=== PATIENT | male | born 1935 | race Caucasian/White ===

== ENCOUNTER 2018-12-05 17:10 | Emergency (ER) | payer MEDICARE, OTHER ==
--- NOTE | 2018-12-05 17:54 | EDM.PDOC ---
ED HPI GENERAL MEDICAL PROBLEM - General Chief Complaint: Abdominal Pain Stated Complaint: "cant go" Time Seen by Provider: 12/05/18 17:28 Source of Information: Reports: Patient, Family History Limitations: Reports: Other (dementia) - History of Present Illness INITIAL COMMENTS - FREE TEXT/NARRATIVE: pt to the ED with low abd pain, question not voiding well and no BM, the pt has some dementia and the family reports he is going to the [facility] several times, However, it is unclear if he is having a BM or voiding when he goes, He was seen by Eber Avitia on Thursday with similar sx and nothing was found according to the son, a Soria was placed and 300ml of urine was noted and the Soria was dc, there is no fever, no NV, no cp or sob, does c/o low back pain Onset: Gradual Duration: Day(s): Location: Reports: Abdomen Quality: Reports: Ache Severity: Moderate Improves with: Reports: None Worsens with: Reports: None Associated Symptoms: Reports: Confusion (is chronic). Denies: Chest Pain, Cough , Nausea/Vomiting, Shortness of Breath, Weakness Treatments PATIENT NAVIGATOR: Reports: Other (see below) (as above) Abdomen Pain Score (Numeric/FACES): 10 - Related Data Allergies Allergy/AdvReac Type Severity Reaction Status Date / Time No Known Allergies Allergy Verified 12/05/18 17:10 Home Meds: Home Meds Multivitamin [Multi Vitamin Daily] 1 each PO DAILY 09/07/13 [History] Nitrofurantoin Monohyd/M-Cryst [Macrobid 100 mg Capsule] 100 mg PO QPM #14 capsule 12/05/18 [Rx] Tamsulosin [Tamsulosin 24 Hr] 0.4 mg PO BEDTIME #14 cap.er 12/05/18 [Rx] Past Medical History Psychiatric History: Reports: Dementia Oncologic (Cancer) History: Reports: Other (See Below) Other Oncologic History: skin cancer on face Social & Family History - Family History Family Medical History: Noncontributory - Tobacco Use Smoking Status *Q: Never Smoker - Recreational Drug Use Recreational Drug Use: No ED ROS GENERAL - Review of Systems Review Of Systems: ROS reveals no pertinent complaints other than HPI. Constitutional: Reports: No Symptoms. Denies: Fever, Chills, Weakness HEENT: Reports: No Symptoms Respiratory: Reports: No Symptoms. Denies: Shortness of Breath, Cough Cardiovascular: Reports: No Symptoms. Denies: Chest Pain Endocrine: Reports: No Symptoms GI/Abdominal: Reports: Abdominal Pain, Constipation. Denies: Nausea : Denies: Dysuria Musculoskeletal: Reports: Back Pain (low back oain across the back). Denies: Neck Pain Skin: Reports: No Symptoms. Denies: Rash Neurological: Reports: No Symptoms Psychiatric: Reports: No Symptoms ED EXAM, GENERAL - Physical Exam Exam: See Below Exam Limited By: No Limitations General Appearance: Alert, WD/WN, No Apparent Distress Ears: Normal External Exam Nose: Normal Inspection Throat/Mouth: Normal Inspection, Normal Lips Head: Atraumatic, Normocephalic Neck: Normal Inspection, Supple, Non-Tender, Full Range of Motion Respiratory/Chest: No Respiratory Distress, Lungs Clear, Normal Breath Sounds Cardiovascular: Normal Peripheral Pulses, Regular Rate, Rhythm Peripheral Pulses: 2+: Radial (L), Radial (R) GI/Abdominal: Normal Bowel Sounds, Soft, Tender (low abd pain with palpation) (Male) Exam: No Hernia, Normal Inspection. No: Circumcised, Hernia, Testicular Mass, Testicular Tenderness (L), Testicular Tenderness (R), Urethral Discharge Rectal (Males) Exam: Normal Exam, Normal Rectal Tone, Tenderness (enlarged prosatae that was tender with palpation). No: Fecal Impaction Back Exam: Normal Inspection, Full Range of Motion. No: CVA Tenderness (L), CVA Tenderness (R), Vertebral Tenderness Extremities: Normal Inspection, Normal Range of Motion, Non-Tender, No Pedal Edema, Normal Capillary Refill Neurological: Alert, Normal Cognition, Normal Gait, No Motor/Sensory Deficits Psychiatric: Normal Affect, Normal Mood Skin Exam: Warm, Dry, Intact, Normal Color Course - Vital Signs Text/Narrative:: pt was evaluated in the ED, Flat and Upright abd only show mod amt of stool in the colon more right colon, the Soria did result with 575ml of urine out, the Soria was left in place, CBC and CMP are neg, UA neg for nitrates and LE. The pt was given a fleets enema which I do not suspect is the main issue, The pt was also given Flomax x 1 dose as well as one dose of Macrobid prophylaxis. I discussed everything with the family and advised That on PE the prostate did feel enlarged, was tender, I suspect this is causing his urinary retention, will leave the cath in place and have him f/u with urology for further evaluation and tx. The pt will be given an RX for Flomax and Macrobid 1 does each at HS. Last Recorded V/S: Last Vital Signs Temp 36.2 C 12/05/18 17:11 Pulse 92 12/05/18 17:11 Resp 18 12/05/18 17:11 BP 146/79 H 12/05/18 17:11 Pulse Ox 97 12/05/18 17:11 - Orders/Labs/Meds Orders: Active Orders 24 hr Category Date Time Status Enema [RC] ASDIRECTED Care 12/05/18 18:27 Ordered Insert Soria Catheter [Insert Urinary Catheter] [OM.PC] Care 12/05/18 18:00 Ordered Q24H Urinary Catheter Assessment [RC] ASDIRECTED Care 12/05/18 18:26 Active Abdomen 2V AP Flat Upright [CR] Stat Exams 12/05/18 17:47 Taken Labs: Laboratory Tests 12/05/18 12/05/18 12/05/18 Range/Units 17:47 17:47 17:47 WBC 8.4 (5.0-10.0) 10^3/uL RBC 5.30 (4.50-6.00) 10^6/uL Hgb 15.9 (14.0-18.0) g/dL Hct 45.9 (40.0-54.0) % MCV 86.6 (82.0-94.0) fL MCH 30.0 (27.0-32.0) pg MCHC 34.6 (33.0-38.0) g/dL RDW Coeff of Madeleine 15.0 (11.0-15.0) % Plt Count 245 (150-400) 10^3/uL Neut % (Auto) 56.7 (35-85) % Lymph % (Auto) 29.0 (10-55) % [place] % (Auto) 9.8 (0-16) % Eos % (Auto) 3.9 (0-5) % Baso % (Auto) 0.6 (0-3) % Neut # (Auto) 4.77 (1.80-7.00) 10^3/uL Lymph # (Auto) 2.44 (1.00-4.80) 10^3/uL [place] # (Auto) 0.82 H (0.00-0.80) 10^3/uL Eos # (Auto) 0.33 (0.00-0.45) 10^3/uL Baso # (Auto) 0.05 10^3/uL Sodium 142 (136-145) mEq/L Potassium 4.0 (3.5-5.0) mEq/L Chloride 107 H (98-106) mEq/L Carbon Dioxide 24 (21-32) mmol/L BUN 22 H (7-18) mg/dL Creatinine 1.3 (0.7-1.3) mg/dL Est Cr Clr Drug Dosing 44.46 mL/min Estimated GFR (MDRD) 53 L (>=60) mL/min Glucose 99 (75-99) mg/dL Calcium 9.3 (8.4-10.1) mg/dL Total Bilirubin 0.9 (0.0-1.0) mg/dL AST 21 (15-37) U/L ALT 27 (12-78) U/L Alkaline Phosphatase 95 (46-116) U/L C-Reactive Protein 1.8 H (0.2-0.8) mg/dL Total Protein 7.0 (6.4-8.2) g/dL Albumin 3.6 (3.4-5.0) g/dL Urine Color Yellow (YELLOW) Urine Appearance Clear (CLEAR) Urine pH 5.5 (4.5-8.0) Ur Specific [place] 1.025 H (1.003-1.020) Urine Protein Negative (NEGATIVE) mg/dL Urine Glucose (UA) Negative (NEGATIVE) mg/dL Urine Ketones Negative (NEGATIVE) mg/dL Urine Occult Blood Moderate H (NEGATIVE) Urine Nitrite Negative (NEGATIVE) Urine Bilirubin Negative (NEGATIVE) Urine Urobilinogen 0.2 (0.2-1.0) EU/dL Ur Leukocyte Esterase Negative (NEGATIVE) Urine RBC 10-20 H (0-5) /HPF Urine WBC Not seen (0-5) /HPF Departure - Departure Time of Disposition: 18:59 Disposition: Home, Self-Care 01 Condition: Good Clinical Impression: Acute urinary retention, Constipation - Discharge Information *PRESCRIPTION DRUG MONITORING PROGRAM REVIEWED*: Not Applicable *COPY OF PRESCRIPTION DRUG MONITORING REPORT IN PATIENT JACKY: Not Applicable Prescriptions: Nitrofurantoin Monohyd/M-Cryst [Macrobid 100 mg Capsule] 100 mg PO QPM #14 capsule Tamsulosin [Tamsulosin 24 Hr] 0.4 mg PO BEDTIME #14 cap.er Instructions: Clean Intermittent Catheterization, Male, Constipation, Adult Forms: ED Department Discharge Additional Instructions: increase fluids clean catheter with soap and water 3 x a day Macrobid 100mg at bed time Flomax 0.4 at bed time Follow up with Eber Avitia or Dr. Miranda for referral to Urology, call in am for an appointment time Return to the ED sooner if worse or problems - My Orders Last 24 Hours: My Active Orders 12/05/18 17:47 Abdomen 2V AP Flat Upright [CR] Stat 12/05/18 18:00 Insert Soria Catheter [Insert Urinary Catheter] [OM.PC] Q24H 12/05/18 18:26 Urinary Catheter Assessment [RC] ASDIRECTED 12/05/18 18:27 Enema [RC] ASDIRECTED - Assessment/Plan Last 24 Hours: My Active Orders 12/05/18 17:47 Abdomen 2V AP Flat Upright [CR] Stat 12/05/18 18:00 Insert Soria Catheter [Insert Urinary Catheter] [OM.PC] Q24H 12/05/18 18:26 Urinary Catheter Assessment [RC] ASDIRECTED 12/05/18 18:27 Enema [RC] ASDIRECTED
[2018-12-05] MEDS ORDERED: Tamsulosin 0.4 MG Cap.ER PO ONE (18:50)
[2018-12-05] MEDS ORDERED: Nitrofurantoin Monohydrate/Macrocrystalline 100 MG Cap PO ONE (19:00)
[2018-12-05] MEDS ORDERED: Nitrofurantoin Monohydrate/Macrocrystalline 100 MG Cap ONE (19:16)
[2018-12-06] MEDS ORDERED: Nitrofurantoin Monohydrate/Macrocrystalline 100 MG Cap PO ONE (18:50)
== END 2018-12-05 19:23 | disposition home or self-care (01) ==
LOC: CC.ED 17:10
DX: K59.00 Constipation, unspecified (principal); R33.9 Retention of urine, unspecified; F03.90 Unspecified dementia, unspecified severity, without behavioral disturbance, psychotic disturbance, mood disturbance, and anxiety
CPT/HCPCS: 36415; 51702; 74019; 80053; 81001; 85025; 86140; 99284; A9270

== ENCOUNTER 2018-12-10 21:53 | Emergency (ER) | payer MEDICARE, OTHER ==
--- NOTE | 2018-12-10 22:31 | EDM.PDOC ---
ED HPI GENERAL MEDICAL PROBLEM - General Chief Complaint: Genitourinary Problem Stated Complaint: "He can't go" Time Seen by Provider: 12/10/18 22:10 Source of Information: Reports: Patient, Family History Limitations: Reports: No Limitations - History of Present Illness INITIAL COMMENTS - FREE TEXT/NARRATIVE: to the ED with his son where he was seen at the urologist office today and had the urinary cath removed, pt has not been able to void since then, pt c/o low bd pressure and pain, also has not had a normal BM in a week, was given miralax without result today. 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 (see below) (none) - Related Data Allergies Allergy/AdvReac Type Severity Reaction Status Date / Time No Known Allergies Allergy Verified 12/10/18 22:00 Home Meds: Home Meds Multivitamin [Multi Vitamin Daily] 1 each PO DAILY 09/07/13 [History] Nitrofurantoin Monohyd/M-Cryst [Macrobid 100 mg Capsule] 100 mg PO QPM #14 capsule 12/05/18 [Rx] Tamsulosin [Tamsulosin 24 Hr] 0.4 mg PO BEDTIME #14 cap.er 12/05/18 [Rx] Ferrous Sulfate 324 mg PO DAILY 12/10/18 [History] Past Medical History Psychiatric History: Reports: Dementia Oncologic (Cancer) History: Reports: Other (See Below) Other Oncologic History: skin cancer on face Social & Family History - Family History Family Medical History: Noncontributory ED ROS GENERAL - Review of Systems Review Of Systems: See Below Constitutional: Reports: No Symptoms. Denies: Fever, Chills Respiratory: Reports: No Symptoms Cardiovascular: Reports: No Symptoms Endocrine: Reports: No Symptoms GI/Abdominal: Reports: Abdominal Pain : Reports: Dysuria, Urinary Retention Musculoskeletal: Reports: No Symptoms ED EXAM, GENERAL - Physical Exam Exam: See Below Exam Limited By: No Limitations General Appearance: Alert, WD/WN, Mild Distress Nose: Normal Inspection Throat/Mouth: Normal Inspection, Normal Lips Head: Atraumatic, Normocephalic Neck: Normal Inspection Respiratory/Chest: No Respiratory Distress, Lungs Clear, Normal Breath Sounds Cardiovascular: Normal Peripheral Pulses, Regular Rate, Rhythm GI/Abdominal: Normal Bowel Sounds, Soft, Tender (tender suprapubic area with a distended bladder) Back Exam: Normal Inspection Extremities: Normal Inspection, Normal Range of Motion, Non-Tender, Normal Capillary Refill Neurological: Alert, Oriented, Normal Cognition, Normal Gait, No Motor/Sensory Deficits Psychiatric: Normal Affect, Normal Mood Skin Exam: Warm, Dry, Intact, Normal Color Course - Vital Signs Text/Narrative:: the pt had a sánchez placed back and over 500ml back, the sánchez will stay in place , he was given a fleets enema, will f/u with the urologist this week Last Recorded V/S: Last Vital Signs Temp 36.9 C 12/10/18 21:57 Pulse 109 H 12/10/18 21:57 Resp 16 12/10/18 21:57 BP 161/83 H 12/10/18 21:57 Pulse Ox 95 12/10/18 21:57 - Orders/Labs/Meds Orders: Active Orders 24 hr Category Date Time Status Enema [RC] ASDIRECTED Care 12/10/18 22:24 Ordered Insert Sánchez Catheter [Insert Urinary Catheter] [OM.PC] Care 12/10/18 22:15 Ordered Q24H Urinary Catheter Assessment [RC] ASDIRECTED Care 12/10/18 22:12 Active Departure - Departure Time of Disposition: 22:35 Disposition: Home, Self-Care 01 Condition: Good Clinical Impression: Retention of urine, Constipation - Discharge Information *PRESCRIPTION DRUG MONITORING PROGRAM REVIEWED*: Not Applicable *COPY OF PRESCRIPTION DRUG MONITORING REPORT IN PATIENT JACKY: Not Applicable Instructions: Indwelling Urinary Catheter Care, Adult, Constipation, Adult Forms: ED Department Discharge Additional Instructions: clean Sánchez catheter as before follow back up with the urologist this week, call Thursday for an appointment time return to the ED as needed macrobid 100mg at bed time flomax 0.4mg at bed time - Problem List & Annotations (1) Acute urinary retention SNOMED Code(s): 752070300 Code(s): R33.8 - OTHER RETENTION OF URINE Status: Acute Priority: High (2) Constipation SNOMED Code(s): 60134844 Code(s): K59.00 - CONSTIPATION, UNSPECIFIED Status: Acute Priority: Low Qualifiers: Constipation type: unspecified constipation type Qualified Code(s): K59.00 - Constipation, unspecified - Problem List Review Problem List Initiated/Reviewed/Updated: Yes - My Orders Last 24 Hours: My Active Orders 12/10/18 22:12 Urinary Catheter Assessment [RC] ASDIRECTED 12/10/18 22:15 Insert Sánchez Catheter [Insert Urinary Catheter] [OM.PC] Q24H 12/10/18 22:24 Enema [RC] ASDIRECTED - Assessment/Plan Last 24 Hours: My Active Orders 12/10/18 22:12 Urinary Catheter Assessment [RC] ASDIRECTED 12/10/18 22:15 Insert Sánchez Catheter [Insert Urinary Catheter] [OM.PC] Q24H 12/10/18 22:24 Enema [RC] ASDIRECTED Plan: as above
[2018-12-10] MEDS ORDERED: Ibuprofen 200 MG Tab PO ONE (22:45)
== END 2018-12-10 23:00 | disposition home or self-care (01) ==
LOC: CC.ED 21:53
DX: R33.9 Retention of urine, unspecified (principal); K59.00 Constipation, unspecified
CPT/HCPCS: 51702; 99283; A9270; 99284

== ENCOUNTER 2019-04-20 14:47 | Emergency (ER) | payer MEDICARE, OTHER ==
--- NOTE | 2019-04-20 15:53 | EDM.PDOC ---
ED HPI GENERAL MEDICAL PROBLEM - General Chief Complaint: Respiratory Problem Stated Complaint: HARD TIME BREATHING Time Seen by Provider: 04/20/19 15:37 Source of Information: Reports: Patient, Family (son) History Limitations: Reports: No Limitations - History of Present Illness INITIAL COMMENTS - FREE TEXT/NARRATIVE: Leonid is an 84 yo male who presents to the ED, accompanied by his son, with reports that he has pain to his left side of his chest. Admits symptoms started this morning and have gotten worse through out the day. States it is only noticeable when taking deep breaths. Patient points to area to side of left breast as area of pain. Denies any discomfort with exertion or rest. Only with deep breaths. Denies any recent cold symptoms. Denies any cough. Does admit to feeling a little short of breath with exertion but states that is "usual" for him and "it's not any worse." Denies any recent falls or injury to area. Denies any recent illnesses or fevers. - Related Data Allergies Allergy/AdvReac Type Severity Reaction Status Date / Time No Known Allergies Allergy Verified 04/20/19 15:05 Home Meds: Home Meds Multivitamin [Multi Vitamin Daily] 1 each PO DAILY 09/07/13 [History] Past Medical History Genitourinary History: Reports: BPH, Retention, Urinary Neurological History: Reports: Other (See Below) Other Neuro History: dementia Psychiatric History: Reports: Dementia Oncologic (Cancer) History: Reports: Other (See Below) Other Oncologic History: skin cancer on face (melanoma) Dermatologic History: Reports: Melanoma - Past Surgical History Male Surgical History: Reports: TURP-Transurethral Resection of Prostate Dermatological Surgical History: Reports: Other (See Below) Social & Family History - Family History Family Medical History: Noncontributory - Tobacco Use Smoking Status *Q: Never Smoker ED ROS GENERAL - Review of Systems Review Of Systems: Comprehensive ROS is negative, except as noted in HPI. ED EXAM, GENERAL - Physical Exam Exam: See Below General Appearance: Alert, WD/WN, No Apparent Distress Eye Exam: Bilateral Eye: Normal Inspection Ears: Normal External Exam, Normal Canal, Normal TMs, Hearing Loss, Other ( hearing aid in right ear) Nose: Normal Inspection, Normal Mucosa, No Blood Throat/Mouth: Normal Inspection, Normal Lips, Normal Gums, Normal Oropharynx, Normal Voice Head: Atraumatic, Normocephalic Neck: Normal Inspection, Supple, Non-Tender Respiratory/Chest: No Respiratory Distress, Lungs Clear, Normal Breath Sounds, No Accessory Muscle Use Cardiovascular: Regular Rate, Rhythm, No Edema GI/Abdominal: Normal Bowel Sounds, Soft, Non-Tender, No Organomegaly, No Distention, No Mass Back Exam: Normal Inspection Extremities: Normal Inspection Neurological: Alert, Oriented, Normal Cognition, No Motor/Sensory Deficits Psychiatric: Normal Affect, Normal Mood Skin Exam: Warm, Dry, Intact, Normal Color, No Rash Course - Vital Signs Last Recorded V/S: Last Vital Signs Temp 99.0 F 04/20/19 15:45 Pulse 79 04/20/19 15:45 Resp 16 04/20/19 15:45 BP 160/79 H 04/20/19 15:45 Pulse Ox 97 04/20/19 15:45 - Orders/Labs/Meds Orders: Active Orders 24 hr Category Date Time Status CXR [Chest 2V] [CR] Stat Exams 04/20/19 15:38 Ordered Labs: Laboratory Tests 04/20/19 04/20/19 04/20/19 Range/Units 15:39 15:39 15:39 WBC 8.4 (5.0-10.0) 10^3/uL RBC 4.35 L (4.50-6.00) 10^6/uL Hgb 13.2 L (14.0-18.0) g/dL Hct 39.5 L (40.0-54.0) % MCV 90.8 (82.0-94.0) fL MCH 30.3 (27.0-32.0) pg MCHC 33.4 (33.0-38.0) g/dL RDW Coeff of Madeleine 14.9 (11.0-15.0) % Plt Count 209 (150-400) 10^3/uL Neut % (Auto) 53.5 (35-85) % Lymph % (Auto) 28.8 (10-55) % [place] % (Auto) 9.9 (0-16) % Eos % (Auto) 6.8 H (0-5) % Baso % (Auto) 1.0 (0-3) % Neut # (Auto) 4.50 (1.80-7.00) 10^3/uL Lymph # (Auto) 2.42 (1.00-4.80) 10^3/uL [place] # (Auto) 0.83 H (0.00-0.80) 10^3/uL Eos # (Auto) 0.57 H (0.00-0.45) 10^3/uL Baso # (Auto) 0.08 10^3/uL PT 10.6 (9.7-12.3) SEC INR 1.03 (0.92-1.18) APTT 26.6 (23.2-32.3) SEC Sodium 145 (136-145) mEq/L Potassium 4.3 (3.5-5.0) mEq/L Chloride 108 H (98-106) mEq/L Carbon Dioxide 29 (21-32) mmol/L BUN 15 (7-18) mg/dL Creatinine 1.3 (0.7-1.3) mg/dL Est Cr Clr Drug Dosing 43.68 mL/min Estimated GFR (MDRD) 53 L (>=60) mL/min Glucose 118 H (75-99) mg/dL Calcium 8.6 (8.4-10.1) mg/dL Total Bilirubin 0.5 (0.0-1.0) mg/dL AST 20 (15-37) U/L ALT 28 (12-78) U/L Alkaline Phosphatase 86 (46-116) U/L Lactate Dehydrogenase 166 (100-190) U/L Creatine Kinase 57 (35-232) U/L Troponin I < 0.017 (0.00-0.06) ng/mL Total Protein 6.2 L (6.4-8.2) g/dL Albumin 3.2 L (3.4-5.0) g/dL Lipase 244 (73-393) U/L Departure - Departure Time of Disposition: 16:15 Disposition: Home, Self-Care 01 Clinical Impression: Pleurisy - Discharge Information Instructions: Pleurisy, [id number] Forms: ED Department Discharge Additional Instructions: 1) Ibuprofen as directed on bottle for discomfort 2) Encourage to continue taking deep breaths 3) If pain worsens, increased shortness of breath, fevers, etc... advise returning to ED. Sepsis Event Note - Evaluation Sepsis Screening Result: No Definite Risk - Focused Exam Vital Signs: Vital Signs Temp Pulse Resp BP BP Pulse Ox 04/20/19 15:45 99.0 F 79 16 160/79 H 97 04/20/19 15:06 97.7 F 83 16 176/82 H 99 Date Exam was Performed: 04/20/19 Time Exam was Performed: 16:14 - Problem List & Annotations (1) Pleurisy SNOMED Code(s): 196783897 Code(s): R09.1 - PLEURISY Status: Acute Current Visit: Yes - My Orders Last 24 Hours: My Active Orders 04/20/19 15:38 CXR [Chest 2V] [CR] Stat - Assessment/Plan Last 24 Hours: My Active Orders 04/20/19 15:38 CXR [Chest 2V] [CR] Stat Plan: Chest x-ray negative for any acute cardiopulmonary findings. Labs overall unremarkable. EKG stable. discussed pleurisy with Leonid and his son. Will take him home and see how he does through the night. Currently doesn't have any symptoms.
[2019-04-20 16:06] LABS: CHLORIDE,CL 108 mEq/L (98-106); SODIUM,NA 145 mEq/L (136-145)
== END 2019-04-20 16:20 | disposition home or self-care (01) ==
LOC: CC.ED 14:47
DX: R09.1 Pleurisy (principal)
CPT/HCPCS: 36415; 71046; 80053; 82550; 83615; 83690; 84484; 85025; 85610; 85730; 93005; 99284; 99285-25

== ENCOUNTER 2019-12-05 13:43 | Inpatient (IN) | payer MEDICARE, OTHER ==
[2019-12-05] MEDS ORDERED: Temazepam 15 MG Cap PO PRN (13:53)
[2019-12-05] MEDS: Enoxaparin 40 MG/0.4 ML Syringe SUBCUT SCH (16:07)
--- NOTE | 2019-12-06 10:34 | PCM.PN ---
- General Info Date of Service: 12/06/19 Admission Dx/Problem (Free Text): Advanced Dementia Vulnerable adult. Functional Status: Reports: Pain Controlled, Tolerating Diet, Ambulating - Review of Systems General: Reports: Other (patient denies chest pain, shortness of breath, abdominal pain. However, when asked questions, answers aren't appropriate. Has poor word recall. Confused. ). Denies: Weakness, Fatigue - Patient Data Vitals - Most Recent: Last Vital Signs Temp 98.5 F 12/06/19 08:00 Pulse 71 12/06/19 08:00 Resp 16 12/06/19 08:00 BP 152/77 H 12/06/19 08:00 Pulse Ox 97 12/06/19 08:00 Weight - Most Recent: 187 lb 8 oz Lab Results Last 24 Hours: Laboratory Results - last 24 hr 12/05/19 12/05/19 12/05/19 Range/Units 13:53 13:53 20:06 WBC 8.4 (5.0-10.0) 10^3/uL RBC 4.90 (4.50-6.00) 10^6/uL Hgb 14.9 (14.0-18.0) g/dL Hct 44.0 (40.0-54.0) % MCV 89.8 (82.0-94.0) fL MCH 30.4 (27.0-32.0) pg MCHC 33.9 (33.0-38.0) g/dL RDW Coeff of Madeleine 15.1 H (11.0-15.0) % Plt Count 234 (150-400) 10^3/uL Neut % (Auto) 59.1 (35-85) % Lymph % (Auto) 27.7 (10-55) % [place] % (Auto) 9.6 (0-16) % Eos % (Auto) 2.9 (0-5) % Baso % (Auto) 0.7 (0-3) % Neut # (Auto) 4.95 (1.80-7.00) 10^3/uL Lymph # (Auto) 2.32 (1.00-4.80) 10^3/uL [place] # (Auto) 0.80 (0.00-0.80) 10^3/uL Eos # (Auto) 0.24 (0.00-0.45) 10^3/uL Baso # (Auto) 0.06 10^3/uL Sodium 147 H (136-145) mEq/L Potassium 4.5 (3.5-5.0) mEq/L Chloride 110 H (98-106) mEq/L Carbon Dioxide 25 (21-32) mmol/L BUN 18 (7-18) mg/dL Creatinine 1.6 H (0.7-1.3) mg/dL Est Cr Clr Drug Dosing 34.37 mL/min Estimated GFR (MDRD) 41 L (>=60) mL/min Glucose 105 H (75-99) mg/dL Calcium 9.4 (8.4-10.1) mg/dL Total Bilirubin 1.6 H (0.0-1.0) mg/dL AST 21 (15-37) U/L ALT 25 (12-78) U/L Alkaline Phosphatase 93 (46-116) U/L Total Protein 7.2 (6.4-8.2) g/dL Albumin 3.7 (3.4-5.0) g/dL Urine Color Dark yellow (YELLOW) Urine Appearance Clear (CLEAR) Urine pH 5.5 (4.5-8.0) Ur Specific [place] >= 1.030 H (1.003-1.020) Urine Protein Negative (NEGATIVE) mg/dL Urine Glucose (UA) Negative (NEGATIVE) mg/dL Urine Ketones 15 H (NEGATIVE) mg/dL Urine Occult Blood Negative (NEGATIVE) Urine Nitrite Negative (NEGATIVE) Urine Bilirubin Negative (NEGATIVE) Urine Urobilinogen 0.2 (0.2-1.0) EU/dL Ur Leukocyte Esterase Negative (NEGATIVE) Med Orders - Current: Current Medications Enoxaparin Sodium (Lovenox) 40 mg SUBCUT Q24H ZAYRA Last Admin: 12/05/19 16:07 Dose: 40 mg Documented by: Temazepam (Restoril) 15 mg PO BEDTIME PRN PRN Reason: Sleep - Exam General: Alert, Oriented (person only), Cooperative HEENT: Mucous Membr. Moist/[place] Neck: Supple Lungs: Clear to Auscultation, Normal Respiratory Effort Cardiovascular: Regular Rate, Regular Rhythm GI/Abdominal Exam: Normal Bowel Sounds, Soft, Non-Tender Extremities: Normal Inspection, No Pedal Edema Skin: Warm, Dry Psy/Mental Status: Alert Sepsis Event Note - Evaluation Sepsis Screening Result: No Definite Risk - Focused Exam Vital Signs: Vital Signs Temp Pulse Resp BP Pulse Ox 12/06/19 08:00 98.5 F 71 16 152/77 H 97 12/06/19 03:39 97.5 F 79 16 154/81 H 95 12/05/19 23:22 97.3 F 75 16 153/78 H 95 Date Exam was Performed: 12/06/19 Time Exam was Performed: 10:30 - Problem List & Annotations (1) Advancing dementia SNOMED Code(s): 92197857 Code(s): F03.90 - UNSPECIFIED DEMENTIA WITHOUT BEHAVIORAL DISTURBANCE Status: Acute Priority: High Current Visit: Yes (2) Failure to thrive SNOMED Code(s): 57538925 Code(s): JCI9811 - Status: Acute Priority: High Current Visit: Yes Qualifiers: Failure to thrive age range: in adult Qualified Code(s): R62.7 - Adult failure to thrive (3) Palliative care patient SNOMED Code(s): 997167168, 668782908 Code(s): Z51.5 - ENCOUNTER FOR PALLIATIVE CARE Status: Acute Priority: High Current Visit: Yes - Problem List Review Problem List Initiated/Reviewed/Updated: Yes - Assessment Assessment:: Advanced Dementia Vulnerable Adult Palliative care patient - Plan Plan:: Patient is alert. Oriented to person only. denies pain anywhere. Does not answer questions appropriately. Is fixated on his pick remover this morning with my conversation. Family has noted advancing confusion. Not able to care for self at home any longer. career services officer has been consulted for [facility] placement. No other changes this am.
[2019-12-06] MEDS: Enoxaparin 40 MG/0.4 ML Syringe SUBCUT SCH (15:03)
--- NOTE | 2019-12-07 09:26 | PCM.PN ---
- General Info Date of Service: 12/07/19 Admission Dx/Problem (Free Text): Advanced Dementia Vulnerable adult. Functional Status: Reports: Pain Controlled, Tolerating Diet, Ambulating - Review of Systems General: Denies: Fever HEENT: Reports: No Symptoms Pulmonary: Denies: Shortness of Breath, Cough Cardiovascular: Denies: Chest Pain, Edema, Lightheadedness Gastrointestinal: Denies: Abdominal Pain, Nausea, Vomiting Genitourinary: Reports: No Symptoms Musculoskeletal: Reports: No Symptoms Skin: Reports: No Symptoms Neurological: Reports: Confusion - Patient Data Vitals - Most Recent: Last Vital Signs Temp 97.9 F 12/07/19 08:14 Pulse 71 12/07/19 08:14 Resp 20 12/07/19 08:14 BP 157/75 H 12/07/19 08:14 Pulse Ox 97 12/07/19 08:14 Weight - Most Recent: 187 lb 8 oz Lab Results Last 24 Hours: Laboratory Results - last 24 hr 12/07/19 12/07/19 12/07/19 Range/Units 07:20 07:20 07:20 WBC 7.4 (5.0-10.0) 10^3/uL RBC 4.88 (4.50-6.00) 10^6/uL Hgb 14.7 (14.0-18.0) g/dL Hct 43.8 (40.0-54.0) % MCV 89.8 (82.0-94.0) fL MCH 30.1 (27.0-32.0) pg MCHC 33.6 (33.0-38.0) g/dL RDW Coeff of Madeleine 14.9 (11.0-15.0) % Plt Count 219 (150-400) 10^3/uL Neut % (Auto) 53.2 (35-85) % Lymph % (Auto) 30.2 (10-55) % Bryan % (Auto) 10.2 (0-16) % Eos % (Auto) 5.6 H (0-5) % Baso % (Auto) 0.8 (0-3) % Neut # (Auto) 3.93 (1.80-7.00) 10^3/uL Lymph # (Auto) 2.23 (1.00-4.80) 10^3/uL Bryan # (Auto) 0.75 (0.00-0.80) 10^3/uL Eos # (Auto) 0.41 (0.00-0.45) 10^3/uL Baso # (Auto) 0.06 10^3/uL Sodium 147 H (136-145) mEq/L Potassium 4.2 (3.5-5.0) mEq/L Chloride 111 H (98-106) mEq/L Carbon Dioxide 26 (21-32) mmol/L BUN 20 H (7-18) mg/dL Creatinine 1.2 (0.7-1.3) mg/dL Est Cr Clr Drug Dosing 45.82 mL/min Estimated GFR (MDRD) 58 L (>=60) mL/min Glucose 99 (75-99) mg/dL Calcium 8.7 (8.4-10.1) mg/dL Total Bilirubin 1.0 (0.0-1.0) mg/dL AST 16 (15-37) U/L ALT 22 (12-78) U/L Alkaline Phosphatase 84 (46-116) U/L Total Protein 6.7 (6.4-8.2) g/dL Albumin 3.4 (3.4-5.0) g/dL COVID-19 (SONNY) Negative (NEGATIVE) Med Orders - Current: Current Medications Enoxaparin Sodium (Lovenox) 40 mg SUBCUT Q24H ZAYRA Last Admin: 12/06/19 15:03 Dose: 40 mg Documented by: Temazepam (Restoril) 15 mg PO BEDTIME PRN PRN Reason: Sleep - Exam General: Alert, Oriented HEENT: Mucous Membr. Moist/[place] Neck: Supple Lungs: Clear to Auscultation, Normal Respiratory Effort Cardiovascular: Regular Rate, Regular Rhythm GI/Abdominal Exam: Normal Bowel Sounds, Soft, Non-Tender Extremities: Normal Inspection, No Pedal Edema Skin: Warm, Dry Neurological: No New Focal Deficit Sepsis Event Note - Evaluation Sepsis Screening Result: No Definite Risk - Focused Exam Vital Signs: Vital Signs Temp Pulse Resp BP Pulse Ox 12/07/19 08:14 97.9 F 71 20 157/75 H 97 Date Exam was Performed: 12/07/19 Time Exam was Performed: 09:18 - Problem List & Annotations (1) Advancing dementia SNOMED Code(s): 82062459 Code(s): F03.90 - UNSPECIFIED DEMENTIA WITHOUT BEHAVIORAL DISTURBANCE Status: Acute Priority: High Current Visit: Yes (2) Failure to thrive SNOMED Code(s): 39565995 Code(s): LTR5245 - Status: Acute Priority: High Current Visit: Yes Qualifiers: Failure to thrive age range: in adult Qualified Code(s): R62.7 - Adult failure to thrive (3) Palliative care patient SNOMED Code(s): 574412664, 743721451 Code(s): Z51.5 - ENCOUNTER FOR PALLIATIVE CARE Status: Acute Priority: High Current Visit: Yes - Problem List Review Problem List Initiated/Reviewed/Updated: Yes - Assessment Assessment:: Advanced Dementia Vulnerable Adult Palliative care patient - Plan Plan:: Patient is alert. Oriented to person only. denies pain anywhere. Does not answer questions appropriately. Is fixated on his seed cone picker this morning with my conversation. Family has noted advancing confusion. Not able to care for self at home any longer. human services supervisor has been consulted for care home placement. No other changes this am. 12-07-2019 Patient is alert. Cooperative. Oriented to person only. Has a difficult time answering questions, repeats self often. Patient has not done well at home. Labs are stable this am. Eating well. COVID testing done this am, is negative. Plan to transfer to [facility] tomorrow if able.
[2019-12-07] MEDS ORDERED: Tuberculin, PPD 5 Units/0.1 ML 1 ML MDV IDERM ONE ×2 (13:15→14:15)
[2019-12-07] MEDS: Enoxaparin 40 MG/0.4 ML Syringe SUBCUT SCH (16:11)
[2019-12-08 07:25] VITALS: BP 140/72; PULSE 68
--- NOTE | 2019-12-08 21:37 | PCM.DCSUM1 ---
Discharge Summary - Hospital Course Free Text/Narrative:: Brandon is an 84 year old was admitted for increased confusion and inability to care for him any longer. Patient had actually done a mini mental in October and scored a 7 and son feels it has worsened even since then. A couple of days ago, patient was found trying to start his pickup with the bow of his glasses. Does have agitation at times. son worried about his safety as he was unsure if he had been outside all night. Not eating well. Tends to eat food that is not nutritious. Hasn't been showering as much. Admitted as vulnerable adult with plans for retirement placement. Diagnosis: Stroke: No Modified Rolette Scale: No Symptoms at All Modified Rolette Scale Score: 0 - Discharge Data Discharge Date: 12/08/19 Discharge Disposition: DC/Tfer to SNF 03 Condition: Fair - Referral to Home Health Primary Care Physician: Manoj Avitia PA-C - Discharge Diagnosis/Problem(s) (1) Advancing dementia SNOMED Code(s): 82628278 ICD Code: F03.90 - UNSPECIFIED DEMENTIA WITHOUT BEHAVIORAL DISTURBANCE Status: Acute Priority: High (2) Failure to thrive SNOMED Code(s): 93074305 ICD Code: [id number] - Status: Acute Priority: High Qualifiers: Failure to thrive age range: in adult Qualified Code(s): R62.7 - Adult failure to thrive (3) Palliative care patient SNOMED Code(s): 812219763, 725977501 ICD Code: Z51.5 - ENCOUNTER FOR PALLIATIVE CARE Status: Acute Priority: High - Patient Summary/Data Complications: none Consults: Consultations 12/05/19 13:53 Consult to Case Management/[facility] [CONS] Routine Hospital Course: Patient is pleasantly confused. Disoriented to place and time. Does wander and needs to be redirected often. Conversations are inappropriate. Labs are all normal. COVID testing done, is negative. Eating well. field services manager has arranged placement at the [facility] the [facility]. Transfer today to [facility]. - Patient Instructions Diet: Usual Diet as Tolerated Activity: As Tolerated - Discharge Plan *PRESCRIPTION DRUG MONITORING PROGRAM REVIEWED*: No *COPY OF PRESCRIPTION DRUG MONITORING REPORT IN PATIENT JACKY: No Home Medications: Home Meds Multivitamin [Multi-Vitamin Daily] 1 each PO DAILY 09/07/13 [History] - Discharge Summary/Plan Comment DC Time >30 min.: Yes Discharge Summary/Plan Comment: Discharge to [facility] Jourdan . - General Info Date of Service: 12/10/19 Admission Dx/Problem (Free Text: Advanced Dementia Vulnerable adult. Functional Status: Reports: Pain Controlled, Tolerating Diet, Ambulating - Review of Systems General: Reports: No Symptoms (denies concerns but does not always seem to understand question) HEENT: Reports: No Symptoms Pulmonary: Denies: Shortness of Breath, Cough Cardiovascular: Denies: Chest Pain Gastrointestinal: Denies: Abdominal Pain, Nausea, Vomiting Genitourinary: Reports: No Symptoms Musculoskeletal: Reports: No Symptoms Skin: Reports: No Symptoms Neurological: Reports: No Symptoms Psychiatric: Reports: No Symptoms - Patient Data Vitals - Most Recent: Last Vital Signs Temp 98.7 F 12/08/19 07:24 Pulse 68 12/08/19 07:24 Resp 16 12/08/19 07:24 BP 140/72 12/08/19 07:24 Pulse Ox 100 12/08/19 07:24 Weight - Most Recent: 187 lb 8 oz Med Orders - Current: Current Medications Discontinued Medications Enoxaparin Sodium (Lovenox) 40 mg SUBCUT Q24H ZAYRA Last Admin: 12/07/19 16:11 Dose: 40 mg Documented by: Temazepam (Restoril) 15 mg PO BEDTIME PRN PRN Reason: Sleep Tuberculin PPD (Aplisol) 5 unit IDERM ONETIME ONE Stop: 12/07/19 13:16 Last Admin: 12/07/19 14:06 Dose: 5 unit Documented by: Tuberculin PPD (Aplisol) 5 unit IDERM ONETIME ONE Stop: 12/07/19 14:16 Last Admin: 12/07/19 14:15 Dose: Not Given Documented by: - Exam General: Reports: Alert, Oriented HEENT: Reports: Mucous Membr. Moist/[place] Neck: Reports: Supple Lungs: Reports: Clear to Auscultation, Normal Respiratory Effort Cardiovascular: Reports: Regular Rate, Regular Rhythm GI/Abdominal Exam: Normal Bowel Sounds, Soft, Non-Tender Extremities: Normal Inspection, No Pedal Edema Skin: Reports: Warm, Dry Neurological: Reports: No New Focal Deficit
== END 2019-12-08 10:10 | DRG 884 ==
LOC: CC.MS 13:43 → UNDOADMIN 13:43 → CC.MS 13:53
PROVIDERS: ADMIT Physician Assistant Medical; ATTEND Family Medicine
DX: F03.90 Unspecified dementia, unspecified severity, without behavioral disturbance, psychotic disturbance, mood disturbance, and anxiety (principal); R62.7 Adult failure to thrive; Z51.5 Encounter for palliative care; Z11.59 Encounter for screening for other viral diseases; Z79.899 Other long term (current) drug therapy; Z91.89 Other specified personal risk factors, not elsewhere classified; Z68.37 Body mass index [BMI] 37.0-37.9, adult
CPT/HCPCS: 36415; 80053; 81003; 85025; J1650; U0002